=== PATIENT | female | born 1980 | race Caucasian/White ===

== ENCOUNTER 2017-04-14 04:20 | Inpatient (IN) | payer MEDICAID ==
[~2017-04-14] VITALS: Ht 152.4 cm; Wt 65.7 kg
[~2017-04-14 04:20] MED LIST: PREN1TAB49
[2017-04-14 04:45] VITALS: BP 133/77; PULSE 85; RESP 18
[2017-04-14] MEDS ORDERED: FERR134T PO (05:17)
[2017-04-14] MEDS ORDERED: OXYTOCIN 30 UNITS/LR 500 ML IV PRN ×2 (05:30→17:00)
[2017-04-14] MEDS ORDERED: OXYTOCIN 30 UNITS/LR 500 ML IV SCH ×3 (05:30→10:00)
[2017-04-14] MEDS ORDERED: MISOPROSTOL 200 MCG TAB PR PRN ×2 (05:30→17:00)
[2017-04-14] MEDS ORDERED: IBUPROFEN 600 MG TAB PO PRN (05:30)
[2017-04-14] MEDS ORDERED: LIDOCAINE 1% (MPF) 30 ML INJ INJ PRN (05:30)
[2017-04-14] MEDS ORDERED: CARBOPROST 250 MCG INJ IM PRN ×2 (05:30→17:00)
[2017-04-14] MEDS ORDERED: BUTORPHANOL 2 MG INJ IV PRN (05:30)
[2017-04-14] MEDS ORDERED: METHYLERGONOVINE 0.2 MG INJ IM PRN ×2 (05:30→17:00)
--- NOTE | 2017-04-14 05:35 | TRIAGE ---
OB Triage Datetime Report Generated by CPN: 04/14/2017 05:34 Datetime: 04/14/2017 05:04 Membrane Status: Ruptured Datetime: 04/14/2017 05:01 Stage of : OB Triage Monitor Mode: External Pattern: Normal: <= 5 Contractions in 10 Minutes Resting Tone [place]: Relaxed Heart Rate FHR Baseline Rate: 135 Monitor Mode: External US FHR Baseline Changes: No Baseline Change Variability: Moderate 6-25 bpm Accelerations: 15X15 Decelerations: None Category: Category I Pain Assessment Pain Scale: 0 Pain Presence: None/Denies Pain Type: N/A Vaginal Exam Dilatation (cms): 0.5 Effacement (%): 70 Station: -3 Exam By: Meme Coronado Membrane Status: Ruptured Amniotic Fluid Color: Clear Amniotic Fluid Amount: Moderate Amniotic Fluid Odor: Normal Vaginal Bleeding: None Pool: Positive Nitrazine: Positive Cervix, Consistency: Soft Cervix, Position: Midposition Datetime: 04/14/2017 04:41 Time of Arrival: 04/14/2017 04:16 EGA: 39.3 Arrived By: Wheelchair Arrived From: Home Chief Complaint: w/c/o srom at 0330 Movement: Present Contractions: Denies/Absent Rupture of Membranes: Ruptured Vaginal Bleeding: None Vaginal Discharge: Present Recent Sexual Intercouse: Denies Abdominal Trauma: Not Applicable Patient Complaints: Other Time Provider Notified: 04/14/2017 05:00 Provider Notified: Dr Diane Initial Plan: EFM,SVE Datetime: 04/14/2017 04:37 Stage of : OB Triage Maternal Assessment Level of Consciousness: Fully Conscious Headache: Denies Blurred Vision: No Respiratory Effort: Unlabored Nausea/Vomiting: Denies RUQ Epigastric Pain: Denies Facial Edema: None Labor Evaluation Frequency: placed Monitor Mode: External Resting Tone [place]: Relaxed Heart Rate FHR Baseline Rate: 130 Monitor Mode: External US Pain Assessment Pain Scale: 0 Pain Presence: None/Denies Pain Type: N/A
[2017-04-14] MEDS ORDERED: LACTATED RINGER'S 1,000 ML IV PRN (07:00)
[2017-04-14] MEDS: LACTATED RINGER'S 1,000 ML IV SCH ×2 (07:06→12:52)
[2017-04-14 07:58] LABS: BASOPHILS % 0.2 % (0.0-2.0); EOSINOPHILS # 0.1 10^3/ul (0.0-0.5); EOSINOPHILS % 0.6 % (0.0-7.0); HEMATOCRIT 35.7 % (37.0-47.0); HEMOGLOBIN 12.1 g/dl (12.0-16.0); LYMPHOCYTES # 2.4 10^3/ul (0.8-2.9); LYMPHOCYTES % 22.4 % (15.0-51.0); MEAN CORPUSCULAR HGB CONC 33.9 g/dl (32.0-37.0); MEAN CORPUSCULAR VOLUME 82.6 fl (82.0-101.0); MEAN PLATELET VOLUME 11.5 fl (7.4-10.4); MONOCYTE # 0.9 10^3/ul (0.3-0.9); MONOCYTES % 8.6 % (0.0-11.0); NEUTROPHIL # 7.3 10^3/ul (1.6-7.5); NEUTROPHILS % 67.4 % (39.0-77.0); PLATELET COUNT 184 10^3/UL (140-415); RED BLOOD COUNT 4.32 10^6/ul (4.20-5.40); WHITE BLOOD COUNT 10.8 10^3/ul (4.8-10.8)
[2017-04-14 08:22] LABS: INR 0.96; PARTIAL THROMBOPLASTIN TIME 29.7 Sec (25.0-35.0); PROTIME 12.8 Sec (12.2-14.2)
[2017-04-14] MEDS ORDERED: FENTAnyl 2MCG/ML-ROPIV 0.2% 100 ML ONE (08:36)
[2017-04-14] MEDS ORDERED: DIPHENHYDRAMINE 50 MG INJ IV PRN (09:00)
[2017-04-14] MEDS ORDERED: NALOXONE (0.4 MG/ML) INJ IV PRN (09:00)
[2017-04-14] MEDS ORDERED: ONDANSETRON 4 MG INJ IV PRN (09:00)
[2017-04-14] MEDS ORDERED: FENTAnyl 2MCG/ML-ROPIV 0.2% 100 ML BAG EPI SCH (09:00)
[2017-04-14] MEDS ORDERED: MINERAL OIL LIGHT 10 ML VIAL TOP ONE (10:00)
--- NOTE | 2017-04-14 15:35 | HP ---
Date/Time of Note Date/Time of Note DATE: 04/14/17 TIME: 15:30 OB - History Hx of Present Free Text/Dictation Admitted at 39 weeks complaining of a spontaneous rupture of membrane in labor pain started 3:30 AM Chief Complaint: Spontaneous rupture of membrane of labor pains Last Menstrual Period: Jul 09, 2016 Estimated Due Date: Apr 18, 2017 : 4 Para: 2 Spontaneous : 1 Care: Good Care Ultrasounds: Normal mid trimester US Obstetrical Complications: None Medical Complications: None Past Family/Social History * Past Medical, Surgical, Family and Obstetric Histories reviewed from chart. Blood Type: A+ Rubella: immune RPR/VDRL: Negative GBS Status: Negative HBsAG: Negative OB Admission Exam Vital Signs Vital Signs Vital Signs Date Time Temp Pulse Resp B/P Pulse Ox O2 Delivery O2 Flow Rate FiO2 04/14/17 04:45 98.3 85 18 133/77 Room Air Physical Exam HEENT: WNL Heart: Rhythm Normal Lungs: Clear, Equal Abdomen: WNL Extremities: Normal Reflexes: Normal Cervical Dilatation: 2cm Effacement: 50% Station: -1 Membranes: Ruptured Amniotic Fluid: Clear Heart Rate: 130's Accelerations: Accelerations Present Decelerations: No Decelerations Varibility: Marked Contractions on Admission: 6-10 Minutes Apart Date/Time Contractions Began: 04/14/2017 0 3:30 AM Frequency of Contractions: Every 5 minutes Duration: Over 60 seconds Intensity: Moderate Last 72 hours Lab Results CBC & BMP 04/14/17 07:00 OB Assessment/Plan Other Assessment: Term gestation Liver pain Spontaneous rupture of membranes Other plan: Augment stable SHERRILL FERNANDEZ MD Apr 14, 2017 15:35
--- NOTE | 2017-04-14 15:37 | LDN ---
Date/Time of Note Date/Time of Note DATE: 04/14/17 TIME: 15:35 Delivery Summary Normal spontaneous vaginal delivery of a viable infant over intact perineum Weeks of Gestation 39+ Placenta Delivered: Spontaneously, Intact & Complete Meconium: none Episiotomy: No Perineal laceration: 2 Laceration repair: Second-degree perineal laceration was repaired in layers using 2-0 Vicryl and 2-0 chromic Anesthesia type: Epidural Estimated blood loss: 300 Sponge & Needle done & correct: Yes All needle counts correct: Yes Any foreign bodies felt in the: No Problems: Infant Delivery Information Sex Sex: male Apgars 1 Minute: 9 5 Minute: 9 Suctioning Nose & mouth suctioned at amy: Yes Delee suction performed: No Umbilical Cord Umbilical cord with: 3 Vessels Cord presentations: no nuchal cord Cord Blood was obtained: Yes Mother & Baby Disposition Disposition Mom & Baby to Maternity; Good: Yes (Mother and baby were recovered in good condition) Mom transferred to: Other (Maternity) Baby to NICU: No SHERRILL FERNANDEZ MD Apr 14, 2017 15:37
[2017-04-14] MEDS ORDERED: LACTATED RINGER'S 1,000 ML IV* SCH (16:56)
[2017-04-14] MEDS ORDERED: HYDROCODONE/APAP (5/325) TAB PO PRN ×2 (17:00)
[2017-04-14] MEDS ORDERED: WITCH HAZEL/GLYCERIN PAD PR PRN (17:00)
[2017-04-14] MEDS ORDERED: BENZOCAINE 20% 56 ML SPRAY TOP PRN (17:00)
[2017-04-14] MEDS ORDERED: ZOLPIDEM 5 MG TAB PO PRN (17:00)
[2017-04-14] MEDS ORDERED: DIBUCAINE 1% 30 GM OINT TOP PRN (17:00)
[2017-04-14] MEDS ORDERED: LANOLIN 7 GM TUBE TOP PRN (17:00)
[2017-04-14 17:10] VITALS: BP 128/61; PULSE 66; RESP 18
[2017-04-14] MEDS: IBUPROFEN 600 MG TAB PO SCH (18:27)
[2017-04-14] MEDS: CEPHALEXIN 500 MG CAP PO SCH (18:27)
[2017-04-14 20:00] VITALS: BP 94/61; PULSE 72; RESP 18
[2017-04-14] MEDS: SENNA/DOCUSATE NA (8.6MG/50MG) TAB PO SCH (21:00)
[2017-04-14] MEDS: MAGNESIUM HYDROXIDE 30ML CUP PO SCH (21:00)
--- NOTE | 2017-04-14 21:09 | RADRPT ---
PROCEDURE: XR Chest PA and Lateral CLINICAL INDICATION: Positive PPD TECHNIQUE: PA and Lateral views of the chest were obtained. COMPARISON: None. FINDINGS: Cardiovascular: The cardiovascular silhouette appears unremarkable. Lung Marroquin: The lung marroquin appear clear with no nodule, alveolar infiltrate, or interstitial promi nence evident. Pleural Spaces: No pneumothorax is identified and no effusion is evident. Osseous Structures: The osseous structures appear intact. Soft Tissues: The soft tissues appear unremarkable. IMPRESSION: Unremarkable chest without evidence of tuberculosis. Physician Tiffanie Date Time Electronically viewed and signed by Kt Orta Physician on 04/14/2017 21:08 /
[2017-04-15] VITALS: BP 118/76; PULSE 70; RESP 18
[2017-04-15] MEDS: IBUPROFEN 600 MG TAB PO SCH ×5 (00:19→23:50)
[2017-04-15] MEDS: CEPHALEXIN 500 MG CAP PO SCH ×5 (00:19→23:51)
[2017-04-15 04:00] VITALS: BP 118/68; PULSE 72; RESP 18
[2017-04-15 08:00] VITALS: BP 116/69; PULSE 68; RESP 17
[2017-04-15] MEDS: SENNA/DOCUSATE NA (8.6MG/50MG) TAB PO SCH ×2 (09:44→21:48)
[2017-04-15] MEDS: MAGNESIUM HYDROXIDE 30ML CUP PO SCH ×2 (09:44→21:48)
[2017-04-15 10:21] LABS: BASOPHILS % 0.2 % (0.0-2.0); EOSINOPHILS # 0.1 10^3/ul (0.0-0.5); HEMATOCRIT 35.8 % (37.0-47.0); HEMOGLOBIN 12.1 g/dl (12.0-16.0); LYMPHOCYTES # 2.5 10^3/ul (0.8-2.9); LYMPHOCYTES % 22.7 % (15.0-51.0); MEAN CORPUSCULAR HEMOGLOBIN 28.1 pg (29.0-33.0); MEAN CORPUSCULAR HGB CONC 33.8 g/dl (32.0-37.0); MEAN CORPUSCULAR VOLUME 83.3 fl (82.0-101.0); MEAN PLATELET VOLUME 11.3 fl (7.4-10.4); MONOCYTE # 0.4 10^3/ul (0.3-0.9); MONOCYTES % 3.6 % (0.0-11.0); NEUTROPHILS % 71.9 % (39.0-77.0); PLATELET COUNT 178 10^3/UL (140-415); RED CELL DISTRIBUTION WIDTH 13.8 % (11.5-14.5); WHITE BLOOD COUNT 11.1 10^3/ul (4.8-10.8)
--- NOTE | 2017-04-15 13:50 | PN ---
Date/Time of Note Date/Time of Note DATE: 04/15/17 TIME: 13:49 Assessment/Plan VTE Prophylaxis VTE Prophylaxis Intervention: ambulation Lines/Catheters IV Catheter Type (from Nrs): Peripheral IV Assessment/Plan Assessment/Plan Postdelivery day #1 patient desires sterilization We will proceed with BTL Subjective 24 Hr Interval Summary Constitutional: improved, no complaints Eyes: no complaints ENT: no complaints Respiratory: no complaints Cardiovascular: no complaints Gastrointestinal: no complaints Genitourinary: no complaints Musculoskeletal: no complaints Skin: no complaints Neurologic: no complaints Endocrine: no complaints Lymphatic: no complaints Psychological: nl mood/affect, no complaints Immunologic: no complaints Exam/Review of Systems Vital Signs Vitals Vital Signs Date Time Temp Pulse Resp B/P Pulse Ox O2 Delivery O2 Flow Rate FiO2 04/15/17 08:00 97.9 68 17 116/69 Room Air Intake and Output 04/14/17 04/14/17 04/15/17 15:00 23:00 07:00 Intake Total 2000 ml 1175 ml Output Total 1400 ml 700 ml Balance 2000 ml -225 ml -700 ml Exam Abdomen is soft Constitutional: alert, oriented, well developed Psych: nl mood/affect, no complaints Head: atraumatic, normocephalic Eyes: EOMI, PERRL, nl conjunctiva, nl lids, nl sclera ENMT: nl external ears & nose, nl lips & teeth, nl nasal mucosa & septum Neck: non-tender, supple Respiratory: clear to auscultation, normal air movement Cardiovascular: nl pulses, regular rate and rhythm Gastrointestinal: nl liver, spleen, non-tender, soft Musculoskeletal: nl extremities to inspection, nl gait and stance Extremities: normal pulses Neurological: [employer] II-XII intact, nl mental status, nl speech, nl strength Skin: nl turgor, No rash or lesions Lymph: nl lymph nodes Results Result Diagram: 04/15/17 1001 Results 24 hrs Laboratory Tests Test 04/15/17 10:01 White Blood Count 11.1 H Red Blood Count 4.30 Hemoglobin 12.1 Hematocrit 35.8 L Mean Corpuscular Volume 83.3 Mean Corpuscular Hemoglobin 28.1 L Mean Corpuscular Hemoglobin Concent 33.8 Red Cell Distribution Width 13.8 Platelet Count 178 Mean Platelet Volume 11.3 H Neutrophils % 71.9 Lymphocytes % 22.7 Monocytes % 3.6 Eosinophils % 1.0 Basophils % 0.2 Nucleated Red Blood Cells % 0.0 Neutrophils # 8.0 H Lymphocytes # 2.5 Monocytes # 0.4 Eosinophils # 0.1 Basophils # 0.0 Nucleated Red Blood Cells # 0.0 Medications Medications Current Medications Ibuprofen (Motrin) 600 mg Q6 PO Last administered on 04/15/17 11:44; Admin Dose 600 MG; Start 04/14/17 at 18:00 Acetaminophen/ Hydrocodone Bitart ([employer] (5/325)) 1 tab Q4H PRN PO PAIN LEVEL 1 -5; Start 04/14/17 at 17:00 Acetaminophen/ Hydrocodone Bitart ([employer] (5/325)) 2 tab Q4H PRN PO PAIN LEVEL 6 -10 Last administered on 04/15/17 01:09; Admin Dose 2 TAB; Start 04/14/17 at 17: 00 Zolpidem Tartrate (Ambien) 5 mg QHS PRN PO INSOMNIA; Start 04/14/17 at 17:00 Senna/Docusate Sodium (Senokot-S) 1 tab BID PO Last administered on 04/15/17 09 :44; Admin Dose 1 TAB; Start 04/14/17 at 21:00 Magnesium Hydroxide (Milk Of Mag) 30 ml Q12 PO Last administered on 04/15/17 09 :44; Admin Dose 30 ML; Start 04/14/17 at 21:00 Measles/Mumps/ Rubella Vaccine Live (Mmr Ii Vaccine) 0.5 ml ONCE ONCE SC* ; Start 04/16/17 at 09:00; Stop 04/16/17 at 09:01 Diphtheria/ Tetanus/Acell Pertussis (Adacel) 0.5 ml ONCE ONCE IM* ; Start at 09:00; Stop 04/16/17 at 09:01 Varicella Virus Vaccine Live 1350 unit 1,350 unit ONCE ONCE SC* ; Start at 09:00; Stop 04/16/17 at 09:01 Oxytocin/Lactated Ringer's 500 ml @ 0 mls/hr ONCE PRN IV For Hemorrhage Management; Start 04/14/17 at 17:00 Methylergonovine Maleate (Methergine) 0.2 mg ONCE PRN IM VAGINAL BLEEDING; Start 04/14/17 at 17:00 Carboprost Tromethamine (Hemabate) 250 mcg ONCE PRN IM VAGINAL BLEEDING; Start 04/14/17 at 17:00 Misoprostol (Cytotec) 1,000 mcg ONCE PRN FL VAGINAL BLEEDING; Start 04/14/17 at 17:00 Cephalexin (Keflex) 500 mg Q6 PO Last administered on 04/15/17t 11:44; Admin Dose 500 MG; Start 04/14/17 at 18:00 SHERRILL FERNANDEZ MD Apr 15, 2017 13:50
--- NOTE | 2017-04-15 14:43 | QN ---
Documentation Comment Patient change her mind about having tubal ligation Currently stable We will DC home today her next day SHERRILL FERNANDEZ MD Apr 15, 2017 14:43
--- NOTE | 2017-04-15 14:45 | DS ---
Date/Time of Note Date/Time of Note home next day DATE: 04/15/17 TIME: 14:43 Obstetrical Discharge Record Final Diagnosis Final Diagnosis: Term delivered Other Final Diagnosis Status post vaginal delivery Vaginal Delivery Obstetrical Delivery: Spontaneous, Laceration, Repaired Complications Augmentation: Yes Condition on Discharge Physical Assessment Last Vitals: See nurse's note Voiding: Yes Bowel Movement: Yes Breast: Soft, non-tender, Filling Fundus: Firm Abdomen and Incision: Soft bowel sounds present Episiotomy: Not applicable Perineum he Calf Tenderness: No Patient Condition: Good SHERRILL FERNANDEZ MD Apr 15, 2017 14:45
[2017-04-15] MEDS ORDERED: IBUP-1542 PO (14:47)
--- NOTE | 2017-04-15 14:47 | PD.PPDC ---
[employer] Discharge Instruction Provider Information Physician Information 36-year-old female had vaginal delivery Diagnosis Final Diagnosis: Status post vaginal delivery Condition Patient Condition: Good Diet Diet: Resume Regular Diet Activity/Restrictions Activity: Normal Activity May Shower Restrictions: Nothing in the Vagina Return to Work or School: Jun 01, 2017 Follow-up Follow-up with Physician: 4, Week/Weeks (In clinic) Return to clinic for OB Instructions: Breast Tenderness Depression SHERRILL FERNANDEZ MD Apr 15, 2017 14:47
[2017-04-15 16:25] VITALS: BP 125/72; PULSE 78; RESP 17
[2017-04-15 19:55] VITALS: BP 124/66; PULSE 77; RESP 19
[2017-04-16 03:50] VITALS: BP 123/78; PULSE 66; RESP 19
[2017-04-16] MEDS: CEPHALEXIN 500 MG CAP PO SCH ×2 (05:42→11:39)
[2017-04-16] MEDS: IBUPROFEN 600 MG TAB PO SCH ×2 (05:42→11:39)
[2017-04-16 08:00] VITALS: BP 105/61; PULSE 75; RESP 16
[2017-04-16] MEDS: SENNA/DOCUSATE NA (8.6MG/50MG) TAB PO SCH (08:42)
[2017-04-16] MEDS: MAGNESIUM HYDROXIDE 30ML CUP PO SCH (08:42)
[2017-04-16] MEDS ORDERED: VARICELLA VACCINE LIVE/PF 1,350 UNIT/0.5 ML ML SC* ONE (09:00)
[2017-04-16] MEDS ORDERED: DIPHTH/TET/ACEL PERTUSS (ADULT) 0.5 ML VIAL IM* ONE (09:00)
[2017-04-16] MEDS ORDERED: MEASLES,MUMPS,RUBELLA VACCINE INJ SC* ONE (09:00)
== END 2017-04-16 15:17 | disposition home or self-care (01) | DRG 775 ==
LOC: L-D 04:20 → OBT 04:20 → L-D 05:00 → PP1 17:16
PROVIDERS: ADMIT Obstetrics & Gynecology; ATTEND Obstetrics & Gynecology
PROC: 10E0XZZ Delivery of Products of Conception, External Approach (ICD-10-PCS; principal; 2017-04-14)
PROC: 0KQM0ZZ Repair Perineum Muscle, Open Approach (ICD-10-PCS; 2017-04-14)
PROC: 3E033VJ Introduction of Other Hormone into Peripheral Vein, Percutaneous Approach (ICD-10-PCS; 2017-04-14)
DX: O70.1 Second degree perineal laceration during delivery (principal); Z37.0 Single live birth; Z3A.39 39 weeks gestation of pregnancy
CPT/HCPCS: 62319; 71020; 85025; 85610; 85730; 86592; 86850; 86900; 86901; 87340; 90715; 90716; G0463; J2590; J3010; J7120